=== PATIENT | male | born 1960 | race Caucasian/White ===

== ENCOUNTER 2018-10-30 20:35 | Outpatient (CLI) | payer SELFPAY ==
[2018-10-30 20:44] LABS: Potassium 4.7 mmol/L (3.5-5.1)
== END 2018-10-30 20:36 | disposition home or self-care (01) ==
LOC: NAV LAB 20:35
DX: R79.9 Abnormal finding of blood chemistry, unspecified (principal)
CPT/HCPCS: 84132

== ENCOUNTER 2023-05-31 02:55 | Emergency (ER) | payer OTHER ==
[2023-05-31] MEDS ORDERED: Sodium Chloride 0.9% 1,000 ML ONE (03:29)
[2023-05-31 04:20] LABS: #Basophils 0.1 thou/uL (0.0-0.2); #Lymphocytes 0.9 thou/uL (1.20-3.40); #Neutrophils 6.9 thou/uL (1.40-6.50); %Lymphocytes 9.6 % (21.0-51.0); %Monocytes 11.8 % (0.0-10.0); %Neutrophils 77.6 % (42.0-75.0); Hemoglobin 15.3 g/dL (14.0-18.0); Mean Corpuscular HGB CONC 34.8 g/dL (32.0-36.0); Mean Corpuscular Volume 89.1 fl (78.0-98.0); Mean Platelet Volume 7.9 fL (7.4-10.4); Platelet Count 233 10x3/uL (130-400); RBC Distribution Width 11.9 % (11.5-14.5); Red Blood Cell (RBC) Count 4.94 mill/uL (4.70-6.10); White Blood Cell (WBC) Count 8.8 10x3/uL (4.8-10.8)
[2023-05-31 04:34] LABS: SARS-CoV-2 NAA Rapid Test Not Detected (NotDetected)
[2023-05-31] MEDS ORDERED: Acetaminophen 500 MG TAB ONE (05:08)
[2023-05-31 05:49] LABS: ALT (SGPT) 22 U/L (8-55); AST (SGOT) 18 U/L (5-34); Albumin 4.5 g/dL (3.4-4.8); Alkaline Phosphatase 61 U/L (40-110); Anion Gap 19 mmol/L (10-20); BUN (Urea Nitrogen) 12 mg/dL (8.4-25.7); Bilirubin, Total 0.4 mg/dL (0.2-1.2); Calc. Creatinine Clearance 0 mL/min (70-130); Calcium 8.9 mg/dL (7.8-10.44); Carbon Dioxide 21 mmol/L (23-31); Chloride 95 mmol/L (98-107); Estimated GFR 98; Globulin 3.6 g/dL (2.4-3.5); Glucose 338 mg/dL (80-115); Potassium 3.2 mmol/L (3.5-5.1); Protein, Total 8.1 g/dL (5.8-8.1); Sodium 132 mmol/L (136-145)
[2023-05-31] MEDS ORDERED: Oseltamivir 75 MG CAP ONE (06:17)
== END 2023-05-31 06:18 ==
LOC: NAV ERS 02:55 → EEVIPCON 02:55 → NAV ERS 06:18
DX: J10.1 Influenza due to other identified influenza virus with other respiratory manifestations (principal); E86.0 Dehydration; E11.9 Type 2 diabetes mellitus without complications; E78.5 Hyperlipidemia, unspecified; I10 Essential (primary) hypertension
CPT/HCPCS: 71045; 80053; 83880; 84484; 85025; 85379; 93005; J7050